=== PATIENT | male | born 1990 | race American Indian/Alaskan Native ===

== ENCOUNTER 2019-04-21 02:25 | Emergency (ER) | payer SELFPAY ==
[2019-04-21 03:02] VITALS: BP 132/68
[2019-04-21] MEDS ORDERED: TYLENOL PO ONE (03:02)
--- NOTE | 2019-04-21 04:24 | Emergency Department Report ---
ED ENT HPI - General Chief complaint: Dental/Oral Stated complaint: SWOLLEN JAW Time Seen by Provider: 04/21/19 03:56 Source: EMS Mode of arrival: Ambulatory Limitations: No Limitations - History of Present Illness MD complaint: tooth pain -: Gradual, Sudden, days(s) (2) Location: tooth # (29) Severity: moderate Quality: dull Consistency: constant Worsens with: eating, movement Associated Symptoms: toothache. denies: pain with swallowing, sore throat, hearing loss - Related Data Previous Rx's Medication Instructions Recorded Last Taken Type Amoxicillin [Amoxicillin TAB] 875 mg PO BID #20 tablet 04/21/19 Unknown Rx Chlorhexidine Mouthwash [Peridex] 15 ml MM BID #473 bottle 04/21/19 Unknown Rx Ketorolac [Toradol] 10 mg PO Q6H PRN #15 tablet 04/21/19 Unknown Rx Lidocaine Viscous 2% 5 ml MM Q3H PRN #120 udc 04/21/19 Unknown Rx Allergies Allergy/AdvReac Type Severity Reaction Status Date / Time shellfish derived Allergy Swelling Verified 11/28/15 11:34 ED Dental HPI - General Chief complaint: Dental/Oral Stated complaint: SWOLLEN JAW Time Seen by Provider: 04/21/19 03:56 Source: EMS Mode of arrival: Ambulatory Limitations: No Limitations - Related Data Previous Rx's Medication Instructions Recorded Last Taken Type Amoxicillin [Amoxicillin TAB] 875 mg PO BID #20 tablet 04/21/19 Unknown Rx Chlorhexidine Mouthwash [Peridex] 15 ml MM BID #473 bottle 04/21/19 Unknown Rx Ketorolac [Toradol] 10 mg PO Q6H PRN #15 tablet 04/21/19 Unknown Rx Lidocaine Viscous 2% 5 ml MM Q3H PRN #120 udc 04/21/19 Unknown Rx Allergies Allergy/AdvReac Type Severity Reaction Status Date / Time shellfish derived Allergy Swelling Verified 11/28/15 11:34 ED Review of Systems ROS: Stated complaint: SWOLLEN JAW Other details as noted in HPI ED Past Medical Hx - Past Medical History Previous Medical History?: No - Surgical History Past Surgical History?: No - Social History Smoking Status: Unknown if ever smoked Substance Use Type: Alcohol - Medications Home Medications: Home Medications Medication Instructions Recorded Confirmed Last Taken Type Amoxicillin [Amoxicillin TAB] 875 mg PO BID #20 tablet 04/21/19 Unknown Rx Chlorhexidine Mouthwash [Peridex] 15 ml MM BID #473 bottle 04/21/19 Unknown Rx Ketorolac [Toradol] 10 mg PO Q6H PRN #15 tablet 04/21/19 Unknown Rx Lidocaine Viscous 2% 5 ml MM Q3H PRN #120 udc 04/21/19 Unknown Rx ED Physical Exam - General Limitations: No Limitations ED Course Vital Signs 04/21/19 02:53 Temperature 98.3 F Pulse Rate 77 Respiratory 16 Rate Blood Pressure 132/68 O2 Sat by Pulse 99 Oximetry Critical care attestation.: If time is entered above; I have spent that time in minutes in the direct care of this critically ill patient, excluding procedure time. ED Disposition Clinical Impression: Dentalgia Disposition: - TO HOME OR SELFCARE Is pt being admited?: No Does the pt Need Aspirin: No Condition: Stable Instructions: Toothache (ED), Dental Caries (ED) Referrals: MADDY DEAN MD [Primary Care Provider] - 3-5 Days [facility] [Outside] - 3-5 Days
== END 2019-04-21 04:20 | disposition home or self-care (01) ==
LOC: ED 02:25
DX: K08.89 Other specified disorders of teeth and supporting structures (principal); Z91.013 Allergy to seafood
CPT/HCPCS: 99282

== ENCOUNTER 2021-07-02 17:38 | Emergency (ER) | payer SELFPAY ==
[2021-07-02 18:25] VITALS: BP 102/63
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
== END 2021-07-02 20:20 | disposition home or self-care (01) ==
LOC: ED 17:38
DX: M79.18 Myalgia, other site (principal); Z79.899 Other long term (current) drug therapy; Z91.013 Allergy to seafood; V49.59XA Passenger injured in collision with other motor vehicles in traffic accident, initial encounter; Y92.410 Unspecified street and highway as the place of occurrence of the external cause; Y93.89 Activity, other specified; Y99.8 Other external cause status
CPT/HCPCS: 99281

== ENCOUNTER 2021-07-29 12:04 | Emergency (ER) | payer SELFPAY ==
[2021-07-29 13:19] VITALS: BP 117/66
--- NOTE | 2021-07-29 15:05 | Emergency Department Report ---
ED ENT HPI - General Chief complaint: Dental/Oral Stated complaint: TOOTHACHE GUMS SWOLLEN Time Seen by Provider: 07/29/21 15:00 Source: patient Mode of arrival: Ambulatory Limitations: No Limitations - History of Present Illness Initial comments: The patient was evaluated in the emergency department for symptoms described in the history of present illness. He/she was evaluated in the context of the global COVID-19 pandemic, which necessitated consideration that the patient might be at risk for infection with the virus that causes COVID-19. Instit utional protocols and algorithms that pertain to the evaluation of patients at risk for COVID-19 are in a state of rapid change based on information released by regulatory bodies including the CDC and federal and state organizations. These policies and algorithms were followed during the patient's care in the emergency department. Please note that these policies, procedures and recommendations changed on a rapid basis. 30-year-old -[place] male presents to the emergency room for left lower jaw pain and teeth pain since last night. Patient reports he is aware that he has a bad teeth that has right now to the gum. Patient states he does have a dentist in [place] but was close to this hospital. Patient denies any drainage no fever no chills no headache no nausea no vomiting. MD complaint: tooth pain -: Last night Location: tooth # (21,22) Severity: severe Severity scale (0 -10): 9 Quality: stabbing, aching, sharp Consistency: constant Improves with: none Worsens with: none Context- Dental: history of dental caries, poor dental care Associated Symptoms: gum swelling - Related Data Previous Rx's Medication Instructions Recorded Last Taken Type Amoxicillin [Amoxicillin TAB] 875 mg PO BID #20 tablet 04/21/19 Unknown Rx Ketorolac [Toradol] 10 mg PO Q6H PRN #15 tablet 04/21/19 Unknown Rx Lidocaine Viscous 2% 5 ml MM Q3H PRN #120 udc 04/21/19 Unknown Rx Naproxen 375 mg PO BID PRN #14 tablet 07/02/21 Unknown Rx methOCARBAMOL [Robaxin TAB] 500 mg PO BID PRN #14 tab 07/02/21 Unknown Rx Chlorhexidine Mouthwash [Peridex] 15 ml MM BID #473 bottle 07/29/21 Unknown Rx Naproxen [Naprosyn] 500 mg PO BID PRN #20 tablet 07/29/21 Unknown Rx Penicillin Vk [Veetids TAB] 250 mg PO QID 7 Days #28 tablet 07/29/21 Unknown Rx Allergies Allergy/AdvReac Type Severity Reaction Status Date / Time shellfish derived Allergy Swelling Verified 07/29/21 13:18 ED Dental HPI - General Chief complaint: Dental/Oral Stated complaint: TOOTHACHE GUMS SWOLLEN Time Seen by Provider: 07/29/21 15:00 Source: patient Mode of arrival: Ambulatory Limitations: No Limitations - Related Data Previous Rx's Medication Instructions Recorded Last Taken Type Amoxicillin [Amoxicillin TAB] 875 mg PO BID #20 tablet 04/21/19 Unknown Rx Ketorolac [Toradol] 10 mg PO Q6H PRN #15 tablet 04/21/19 Unknown Rx Lidocaine Viscous 2% 5 ml MM Q3H PRN #120 udc 04/21/19 Unknown Rx Naproxen 375 mg PO BID PRN #14 tablet 07/02/21 Unknown Rx methOCARBAMOL [Robaxin TAB] 500 mg PO BID PRN #14 tab 07/02/21 Unknown Rx Chlorhexidine Mouthwash [Peridex] 15 ml MM BID #473 bottle 07/29/21 Unknown Rx Naproxen [Naprosyn] 500 mg PO BID PRN #20 tablet 07/29/21 Unknown Rx Penicillin Vk [Veetids TAB] 250 mg PO QID 7 Days #28 tablet 07/29/21 Unknown Rx Allergies Allergy/AdvReac Type Severity Reaction Status Date / Time shellfish derived Allergy Swelling Verified 07/29/21 13:18 ED Review of Systems ROS: Stated complaint: TOOTHACHE GUMS SWOLLEN Other details as noted in HPI Comment: All other systems reviewed and negative ED Past Medical Hx - Past Medical History Previous Medical History?: No - Surgical History Past Surgical History?: No - Social History Smoking Status: Unknown if ever smoked Substance Use Type: Alcohol - Medications Home Medications: Home Medications Medication Instructions Recorded Confirmed Last Taken Type Amoxicillin [Amoxicillin TAB] 875 mg PO BID #20 tablet 04/21/19 Unknown Rx Ketorolac [Toradol] 10 mg PO Q6H PRN #15 tablet 04/21/19 Unknown Rx Lidocaine Viscous 2% 5 ml MM Q3H PRN #120 udc 04/21/19 Unknown Rx Naproxen 375 mg PO BID PRN #14 tablet 07/02/21 Unknown Rx methOCARBAMOL [Robaxin TAB] 500 mg PO BID PRN #14 tab 07/02/21 Unknown Rx Chlorhexidine Mouthwash [Peridex] 15 ml MM BID #473 bottle 07/29/21 Unknown Rx Naproxen [Naprosyn] 500 mg PO BID PRN #20 tablet 07/29/21 Unknown Rx Penicillin Vk [Veetids TAB] 250 mg PO QID 7 Days #28 tablet 07/29/21 Unknown Rx ED Physical Exam - General Limitations: No Limitations General appearance: alert, in no apparent distress - Head Head exam: Present: atraumatic, normocephalic - Eye Eye exam: Present: normal appearance - Expanded ENT Exam Expanded Teeth exam: Present: dental caries, dental tenderness #, gingival enlargement - Neck Neck exam: Present: normal inspection - Respiratory Respiratory exam: Absent: accessory muscle use - Cardiovascular Cardiovascular Exam: Present: regular rate, normal rhythm. Absent: systolic murmur, diastolic murmur, rubs, gallop - Back Exam Back exam: Present: full ROM - Neurological Exam Neurological exam: Present: alert, oriented X3, normal gait - Psychiatric Psychiatric exam: Present: normal affect, normal mood - Skin Skin exam: Present: warm, dry, intact, normal color. Absent: rash ED Course Vital Signs 07/29/21 13:17 Temperature 98.4 F Pulse Rate 57 L Respiratory 18 Rate Blood Pressure 117/66 O2 Sat by Pulse 100 Oximetry ED Medical Decision Making - Medical Decision Making 30-year-old -[place] male presents to the emergency room for left lower jaw pain and teeth pain since last night. Patient reports he is aware that he has a bad teeth that has right now to the gum. Patient states he does have a dentist in [place] but was close to this hospital. Patient denies any drainage no fever no chills no headache no nausea no vomiting. Dental abscess patient be placed on penicillin VK naproxen and Peridex mouthwash. Patient is instructed to follow-up with his dentist. Critical care attestation.: If time is entered above; I have spent that time in minutes in the direct care of this critically ill patient, excluding procedure time. ED Disposition Clinical Impression: Dental abscess Disposition: HOME / SELF CARE / HOMELESS Is pt being admited?: No Does the pt Need Aspirin: No Condition: Stable Instructions: Dental Abscess, [id number] Additional Instructions: Complete antibiotics as prescribed. Pain medication as needed. Use mouth wash as directed. Follow-up with a dentist. Prescriptions: Naproxen [Naprosyn] 500 mg PO BID PRN #20 tablet PRN Reason: Pain , Severe (7-10) Chlorhexidine Mouthwash [Peridex] 15 ml MM BID #473 bottle Penicillin Vk [Veetids TAB] 250 mg PO QID 7 Days #28 tablet Referrals: [facility] [Outside] - 3-5 Days Forms: Work/School Release Form(ED)
== END 2021-07-29 15:10 | disposition home or self-care (01) ==
LOC: ED 12:04
DX: K04.7 Periapical abscess without sinus (principal); Z79.899 Other long term (current) drug therapy; Z91.013 Allergy to seafood
CPT/HCPCS: 99281